=== PATIENT | female | born 1985 | race Caucasian/White ===

== ENCOUNTER 2016-08-07 18:46 | Emergency (ER) | payer BC ==
[~2016-08-07] VITALS: Ht 157.5 cm; Wt 79.5 kg
[~2016-08-07 18:46] MED LIST: AMOXICILLIN 8751 TAB; GUAIFEN AC 10120 ML PO; MOTRIN 200200 MG/TAB PO; NO HOME MEDICATIONS; PREDNISONE10 MG PO; PREDNISONE20 MG PO; SUDAFED 12 HOU120 MG PO
[2016-08-07] MEDS ORDERED: PROBIOTIC FORMU1 CAP PO (18:51)
[2016-08-07] MEDS ORDERED: NIZORAL CR 30GM TOP (18:52)
[2016-08-07] MEDS ORDERED: CIPRO 250MG TA250 MG PO (18:52)
[2016-08-07 19:37] LABS: BASO # 0.1 (0.0-0.2); BASO % 1.2 % (0.0-2.0); EOS # 0.2 (0.0-0.7); EOS % 1.9 % (0-4.0); GRAN # 5.2 (1.4-6.5); GRAN % 66.6 % (42.2-75.2); HEMATOCRIT 39.2 % (37.0-47.0); HEMOGLOBIN 13.2 g/dl (12.5-16.0); MEAN CELL VOLUME 89 fl (80.0-100.0); MEAN CORPUSCULAR HEMOGLOBIN 30 pg (27.0-31.0); MEAN CORPUSCULAR HGB CONC 34 g/dl (33.0-37.0); MEAN PLATELET VOLUME 10.2 fl (7.4-10.4); MONO # 0.3 (0.1-0.6); PLATELET COUNT 291 K/mm3 (130-400); RED BLOOD COUNT 4.39 M/mm3 (4.10-5.30); REDCELL DISTRIBUTION WIDTH-CV 12.2 % (11.5-14.5); WHITE BLOOD COUNT 7.7 K/mm3 (4.8-10.8)
[2016-08-07 19:40] LABS: PH 6 (5-8); SQUAMOUS EPITHELIAL 0-2 /hpf; URINE APPEARANCE Clear; URINE BACTERIA None Seen /hpf; URINE BILIRUBIN Negative (NEGATIVE); URINE BLOOD 2+ (NEGATIVE); URINE COLOR Yellow; URINE GLUCOSE Negative (NEGATIVE); URINE KETONE Negative (NEGATIVE); URINE UROBILINOGEN Negative (NEGATIVE); URINE WBC 0-2 /hpf
[2016-08-07 19:50] LABS: ADJUSTED CALCIUM 8.8 mg/dL (8.4-10.2); ALANINE AMINOTRANSFERASE 33 U/L (9-52); ALBUMIN 4.6 gm/dL (3.5-5.0); ALKALINE PHOSPHATASE 63 U/L (50-136); ANION GAP 12 mmol/L (7-16); BILIRUBIN,TOTAL 0.6 mg/dL (0.0-1.0); BLOOD UREA NITROGEN 13 mg/dL (7-17); C-REACTIVE PROTEIN < 0.5 mg/dL (0.0-0.9); CALCIUM 9.3 mg/dL (8.4-10.2); CARBON DIOXIDE 26 mmol/L (22-30); CHLORIDE 103 mmol/L (98-107); CREATININE, serum 0.63 mg/dL (0.52-1.25); GLUCOSE 78 mg/dL (74-106); LIPASE 122 U/L (23-300); POTASSIUM 4.4 mmol/L (3.4-5.0); SODIUM 141 mmol/L (137-145); TOTAL PROTEIN 7.5 gm/dL (6.4-8.2)
[2016-08-07] MEDS ORDERED: PYRIDIUM200 M1 PO (20:32)
[2016-08-07] MEDS ORDERED: FLAGYL500 MG PO (20:32)
[2016-08-07 20:45] VITALS: BP 123/82; PULSE 87; TEMP 97
[2016-08-07 22:04] LABS: CHLAMYDIA/TRACH by PCR Female NOT DETECTED; NEISSERIA GON by PCR Female NOT DETECTED
== END 2016-08-07 20:48 | disposition home or self-care (01) ==
LOC: COL.ER 18:46
PROVIDERS: Emergency Medicine
DX: R10.2 Pelvic and perineal pain (principal); N39.0 Urinary tract infection, site not specified

== ENCOUNTER 2017-07-18 23:07 | Emergency (ER) | payer BC ==
[~2017-07-18] VITALS: Ht 157.5 cm; Wt 81.8 kg
[~2017-07-18 23:07] MED LIST changes: +CIPRO 250MG TA250 MG PO; +FLAGYL500 MG PO; +NIZORAL CR 30GM TOP; +PROBIOTIC FORMU1 CAP PO; +PYRIDIUM200 M1 PO
[2017-07-18 23:08] VITALS: TEMP 97.5
[2017-07-19 00:23] VITALS: BP 126/95
[2017-07-19 00:47] VITALS: PULSE 71
== END 2017-07-19 00:48 | disposition home or self-care (01) ==
LOC: COL.ER 23:07
DX: G43.909 Migraine, unspecified, not intractable, without status migrainosus (principal)
CPT/HCPCS: J0595; J1885; J2550